=== PATIENT | male | born 1980 | race Caucasian/White ===

== ENCOUNTER 2017-12-12 12:47 | Emergency (ER) | payer BC, OTHER ==
[~2017-12-12] VITALS: Ht 188 cm; Wt 117.9 kg
[2017-12-12] MEDS ORDERED: LIDOCAINE 1%-EPI 1:100,000 20 ML VIAL TP ONE (14:30)
[2017-12-12] MEDS ORDERED: NEOMY/BACITRA/POLYMYXIN B OINT UD PACKET TP ONE ×2 (15:00→15:09)
--- NOTE | 2017-12-12 15:06 | NUR ---
PT WAS EVALUATED BY DR ALEXANDRE. PT WAS D/C TO HOME. D/C INSTRUCTIONS GIVEN TO THE PT.
[2017-12-12 15:08] VITALS: BP 141/78
== END 2017-12-12 15:09 | disposition home or self-care (01) ==
LOC: ER 12:47
DX: S01.112A Laceration without foreign body of left eyelid and periocular area, initial encounter (principal); W21.00XA Struck by hit or thrown ball, unspecified type, initial encounter; Y93.64 Activity, baseball; Y92.89 Other specified places as the place of occurrence of the external cause; Y99.8 Other external cause status
CPT/HCPCS: A4217; A4663; J3490